=== PATIENT | female | born 1950 | race Caucasian/White ===

== ENCOUNTER 2018-05-10 13:08 | Emergency (ER) | payer OTHER ==
[~2018-05-10] VITALS: Ht 147.3 cm; Wt 66.7 kg
[~2018-05-10 13:08] MED LIST: AMARYL; AMLODIPINE BES2.5 MG PO; CARISOPRODOL350 MG PO; CEFADROXIL500 MG PO; ELA-MAX30 GM TP; FENOFIBRATE 120 MG; GABAPENTIN100 MG PO; GLIMEPIRIDE1 MG; INTESTINEX680 MG PO; JANUVIA100 MG; LASIX20 MG PO; LEVSIN/SL0.125 MG SL; METFORMIN HCL500 M1 PO; NEURONTIN600 MG; NORVASC5 MG PO; PREGABALIN 25 MG PO; PRILOSEC40 MG PO; SYNTHROID; SYNTHROID75 MCG; SYNTHROID75 MCG PO; ULTRACET PO; VISTARIL25 MG PO; VISTARIL50 MG PO; WELLBUTRIN SR150 MG PO; ZANAFLEX4 M1 PO
[2018-05-10] MEDS ORDERED: NEURONTIN600 MG PO (13:35)
== END 2018-05-10 15:15 | disposition home or self-care (01) ==
LOC: ER 13:08
DX: M62.838 Other muscle spasm (principal); M25.511 Pain in right shoulder; M94.0 Chondrocostal junction syndrome [Tietze]

== ENCOUNTER 2018-05-20 13:18 | Emergency (ER) | payer OTHER ==
[~2018-05-20] VITALS: Ht 152.4 cm; Wt 65.8 kg
[~2018-05-20 13:18] MED LIST changes: +NEURONTIN600 MG PO
[2018-05-20] MEDS ORDERED: AMBIEN10 MG (13:26)
== END 2018-05-20 17:06 | disposition home or self-care (01) ==
LOC: ER 13:18
DX: K52.9 Noninfective gastroenteritis and colitis, unspecified (principal)

== ENCOUNTER 2018-12-06 16:21 | Emergency (ER) | payer OTHER ==
[~2018-12-06] VITALS: Ht 157.5 cm; Wt 64.4 kg
[~2018-12-06 16:21] MED LIST changes: +AMBIEN10 MG
== END 2018-12-06 19:49 | disposition home or self-care (01) ==
LOC: ER 16:21
DX: K08.89 Other specified disorders of teeth and supporting structures (principal)

== ENCOUNTER → 2019-04-20 | Emergency (ER) | payer OTHER ==
[~2019-04-20] VITALS: Ht 149.9 cm; Wt 66.7 kg
== END | disposition left against medical advice (07) ==
LOC: ER 16:53
DX: M54.16 Radiculopathy, lumbar region (principal); M54.5 Low back pain

== ENCOUNTER 2019-08-18 11:03 | Emergency (ER) | payer OTHER ==
[~2019-08-18] VITALS: Ht 149.9 cm; Wt 67.1 kg
== END 2019-08-18 17:27 | disposition home or self-care (01) ==
LOC: ER 11:03
DX: K52.89 Other specified noninfective gastroenteritis and colitis (principal); R10.84 Generalized abdominal pain

== ENCOUNTER 2019-08-26 10:52 | Outpatient (CLI) | payer OTHER | END 2019-08-26 11:05 | disposition home or self-care (01) | LOC: RAD 10:52 | DX: Z12.31 Encounter for screening mammogram for malignant neoplasm of breast (principal); E04.8 Other specified nontoxic goiter; E03.8 Other specified hypothyroidism ==

== ENCOUNTER 2019-12-06 15:01 | Emergency (ER) | payer OTHER ==
[~2019-12-06] VITALS: Ht 152.4 cm; Wt 65.8 kg
[2019-12-06] MEDS ORDERED: WELLBUTRIN SR150 MG (16:00)
== END 2019-12-06 19:39 | disposition home or self-care (01) ==
LOC: ER 15:01
DX: S20.462A Insect bite (nonvenomous) of left back wall of thorax, initial encounter (principal); W57.XXXA Bitten or stung by nonvenomous insect and other nonvenomous arthropods, initial encounter; Y93.89 Activity, other specified; Y92.89 Other specified places as the place of occurrence of the external cause; Y99.8 Other external cause status

== ENCOUNTER 2019-12-28 12:49 | Outpatient (CLI) | payer OTHER ==
[~2019-12-28 12:49] MED LIST changes: +WELLBUTRIN SR150 MG
== END 2019-12-28 12:55 | disposition home or self-care (01) ==
LOC: LAB 12:49
DX: J45.998 Other asthma (principal); E11.65 Type 2 diabetes mellitus with hyperglycemia; D64.89 Other specified anemias; E11.21 Type 2 diabetes mellitus with diabetic nephropathy; A49.3 Mycoplasma infection, unspecified site; J09.X1 Influenza due to identified novel influenza A virus with pneumonia; N39.0 Urinary tract infection, site not specified

== ENCOUNTER 2021-03-15 11:37 | Emergency (ER) | payer OTHER ==
[~2021-03-15] VITALS: Ht 149.9 cm; Wt 65.8 kg
== END 2021-03-15 18:45 | disposition home or self-care (01) ==
LOC: ER 11:37
DX: R10.32 Left lower quadrant pain (principal)

== ENCOUNTER 2021-05-12 21:35 | Emergency (ER) | payer OTHER ==
[~2021-05-12] VITALS: Ht 149.9 cm; Wt 63.5 kg
[2021-05-12] MEDS ORDERED: ULTRAM50 MG (22:05)
[2021-05-12] MEDS ORDERED: BACLOFEN20 MG (22:06)
[2021-05-13] MEDS ORDERED: CARAFATE1 GM PO (02:03)
[2021-05-13] MEDS ORDERED: PROTONIX20 MG PO (02:03)
[2021-05-13] MEDS ORDERED: PEPCID AC20 MG PO (02:03)
== END 2021-05-13 02:07 | disposition home or self-care (01) ==
LOC: ER 21:35
DX: R10.13 Epigastric pain (principal); R10.11 Right upper quadrant pain

== ENCOUNTER 2021-05-23 10:26 | Emergency (ER) | payer OTHER ==
[~2021-05-23] VITALS: Ht 149.9 cm; Wt 63.5 kg
[~2021-05-23 10:26] MED LIST changes: +BACLOFEN20 MG; +CARAFATE1 GM PO; +PEPCID AC20 MG PO; +PROTONIX20 MG PO; +ULTRAM50 MG
[2021-05-23] MEDS ORDERED: NEURONTIN600 M1 PO (16:45)
[2021-05-23] MEDS ORDERED: IBU600 MG PO (16:45)
[2021-05-23] MEDS ORDERED: VALACYCLOVIR1000 MG PO (16:45)
== END 2021-05-23 16:53 | disposition home or self-care (01) ==
LOC: ER 10:26
DX: R10.12 Left upper quadrant pain (principal); R10.11 Right upper quadrant pain; B02.9 Zoster without complications

== ENCOUNTER 2022-10-22 07:43 | Emergency (ER) | payer OTHER ==
[~2022-10-22] VITALS: Ht 149.9 cm; Wt 52.2 kg
[~2022-10-22 07:43] MED LIST changes: +IBU600 MG PO; +NEURONTIN600 M1 PO; +VALACYCLOVIR1000 MG PO
== END 2022-10-22 10:22 | disposition home or self-care (01) ==
LOC: ER 07:43
DX: J02.8 Acute pharyngitis due to other specified organisms (principal); Z20.822 Contact with and (suspected) exposure to COVID-19

== ENCOUNTER → 2022-12-06 | Outpatient (CLI) | payer OTHER | END | disposition home or self-care (01) | LOC: NUCLEAR 07:00 | PROVIDERS: ATTEND Internal Medicine Cardiovascular Disease | DX: I25.119 Atherosclerotic heart disease of native coronary artery with unspecified angina pectoris (principal) | CPT/HCPCS: 78452; 93017; A9500 ==

== ENCOUNTER 2023-01-04 14:24 | Emergency (ER) | payer OTHER ==
[~2023-01-04] VITALS: Ht 149.9 cm; Wt 51.3 kg
== END 2023-01-04 20:04 | disposition home or self-care (01) ==
LOC: ER 14:24
DX: K29.00 Acute gastritis without bleeding (principal); I10 Essential (primary) hypertension; K76.1 Chronic passive congestion of liver; E11.9 Type 2 diabetes mellitus without complications; Z79.84 Long term (current) use of oral hypoglycemic drugs; K21.9 Gastro-esophageal reflux disease without esophagitis; N39.0 Urinary tract infection, site not specified

== ENCOUNTER 2023-01-10 07:00 | Outpatient (CLI) | payer OTHER | END 2023-01-14 15:36 | disposition home or self-care (01) | LOC: TOM 07:00 | PROVIDERS: ATTEND Specialist | DX: K57.92 Diverticulitis of intestine, part unspecified, without perforation or abscess without bleeding (principal); N23 Unspecified renal colic ==

== ENCOUNTER 2023-04-27 13:26 | Emergency (ER) | payer OTHER ==
[~2023-04-27] VITALS: Ht 147.3 cm; Wt 49.9 kg
[2023-04-27] MEDS ORDERED: DOLOGESIC 500-1 EACH PO (17:12)
[2023-04-27] MEDS ORDERED: FLONASE ALLERG9.9 ML NASAL (17:12)
[2023-04-27] MEDS ORDERED: ZITHROMAX500 MG PO (17:29)
== END 2023-04-27 17:40 | disposition home or self-care (01) ==
LOC: ER 13:26
DX: U07.1 COVID-19 (principal)

== ENCOUNTER 2023-11-10 16:33 | Emergency (ER) | payer OTHER ==
[~2023-11-10] VITALS: Ht 149.9 cm; Wt 49.9 kg
[~2023-11-10 16:33] MED LIST changes: +DOLOGESIC 500-1 EACH PO; +FLONASE ALLERG9.9 ML NASAL; +ZITHROMAX500 MG PO
[2023-11-10] MEDS ORDERED: CLEOCIN HCL300 MG PO (18:50)
== END 2023-11-10 19:16 | disposition home or self-care (01) ==
LOC: ER 16:33
DX: S61.022A Laceration with foreign body of left thumb without damage to nail, initial encounter (principal); W45.8XXA Other foreign body or object entering through skin, initial encounter; Y93.89 Activity, other specified; Y92.89 Other specified places as the place of occurrence of the external cause; Z91.011 Allergy to milk products; J45.909 Unspecified asthma, uncomplicated; E11.9 Type 2 diabetes mellitus without complications; Z79.84 Long term (current) use of oral hypoglycemic drugs; I10 Essential (primary) hypertension; E03.9 Hypothyroidism, unspecified

== ENCOUNTER 2024-08-12 13:41 | Emergency (ER) | payer OTHER ==
[~2024-08-12] VITALS: Ht 149.9 cm; Wt 54.4 kg
[~2024-08-12 13:41] MED LIST changes: +CLEOCIN HCL300 MG PO; +LEVOTHYROXINE50 MCG PO
[2024-08-12] MEDS ORDERED: KETOROLAC TROMET5 M1 OP (14:06)
[2024-08-12] MEDS ORDERED: PREDNISOLO15 MG/5 M1 PO (14:06)
[2024-08-12 14:08] VITALS: BP 151/80; O2SAT 98
[2024-08-12 16:36] LABS: HEMATOCRIT 39.4 % (36.0-45.00); HEMOGLOBIN 13.9 g/dL (12.0-15.00); MEAN CELL VOLUME 89.7 fL (80.00-100.00); MEAN CORPUSCULAR HEMOGLOBIN 31.6 pg (27.00-32.0); MEAN CORPUSCULAR HGB CONC 35.2 g/dl (32.0-36.0); RED BLOOD COUNT 4.39 M/uL (4.00-6.00); RED CELL DISTRIBUTION WIDTH 13.4 % (11.5-14.5)
[2024-08-12 16:54] LABS: PLATELET COUNT 120 K/uL (150-450)
== END 2024-08-12 19:17 | disposition home or self-care (01) ==
LOC: ER 13:42
DX: A90 Dengue fever [classical dengue] (principal)

== ENCOUNTER 2024-09-13 11:01 | Emergency (ER) | payer OTHER ==
[~2024-09-13] VITALS: Ht 149.9 cm; Wt 57.6 kg
[~2024-09-13 11:01] MED LIST changes: +KETOROLAC TROMET5 M1 OP; +PREDNISOLO15 MG/5 M1 PO
[2024-09-13] MEDS ORDERED: KETOROLAC TROMETHAMINE 30 MG VIAL IM STA (12:57)
[2024-09-13] MEDS ORDERED: ORPHENADRINE CITRATE 30 MG/ML AMPUL IM STA (12:58)
== END 2024-09-13 14:43 | disposition home or self-care (01) ==
LOC: ER 11:03
DX: M54.50 Low back pain, unspecified (principal); W07.XXXA Fall from chair, initial encounter; Y93.89 Activity, other specified; Y92.018 Other place in single-family (private) house as the place of occurrence of the external cause; Z91.011 Allergy to milk products; M62.830 Muscle spasm of back
CPT/HCPCS: 72100; 73502; 96372; 99283; J1885; J2360

== ENCOUNTER 2024-12-06 19:06 | Emergency (ER) | payer OTHER ==
[~2024-12-06] VITALS: Ht 154.9 cm; Wt 63.5 kg
[2024-12-06] MEDS ORDERED: TETRACAINE HCL 20 DR/ML DROPS OP STA (22:09)
[2024-12-06] MEDS ORDERED: GENTAMICIN SULFATE 0.15 MG/DR DROPS 5ML OP STA (22:19)
[2024-12-06] MEDS ORDERED: GENTAMICIN SULFATE 0.15 MG/DR DROPS 5ML OP ONE (22:22)
== END 2024-12-06 22:27 | disposition home or self-care (01) ==
LOC: ER 19:08
DX: S05.31XA Ocular laceration without prolapse or loss of intraocular tissue, right eye, initial encounter (principal); X58.XXXA Exposure to other specified factors, initial encounter; Y93.89 Activity, other specified; Y92.89 Other specified places as the place of occurrence of the external cause; Y99.9 Unspecified external cause status; Z91.011 Allergy to milk products

== ENCOUNTER 2025-01-10 11:59 | Emergency (ER) | payer OTHER ==
[~2025-01-10] VITALS: Ht 149.9 cm; Wt 54.4 kg
[2025-01-10] MEDS ORDERED: GABAPENTIN600 MG PO (12:36)
[2025-01-10] MEDS ORDERED: FAMOTIDINE20 MG PO (12:36)
[2025-01-10] MEDS ORDERED: PANTOPRAZOLE SO40 MG PO (12:36)
[2025-01-10] MEDS ORDERED: BUPROPION HCL150 M1 PO (12:36)
[2025-01-10] MEDS ORDERED: LEVOTHYROXINE75 MCG PO (12:36)
[2025-01-10] MEDS ORDERED: LEVALBUTEROL HCL 0.63 MG/3 ML SOLUTION IH SCH (13:00)
[2025-01-10] MEDS ORDERED: METHYLPREDNISOLONE SOD SUCC 125 MG VIAL IV ONE (13:00)
[2025-01-10] MEDS ORDERED: METHYLPREDNISOLONE SOD SUCC 125 MG VIAL ONE (13:17)
[2025-01-10 13:38] LABS: HEMATOCRIT 40.5 % (36.0-45.00); HEMOGLOBIN 13.9 g/dL (12.0-15.00); MEAN CELL VOLUME 90.9 fL (80.00-100.00); MEAN CORPUSCULAR HEMOGLOBIN 31.1 pg (27.00-32.0); MEAN CORPUSCULAR HGB CONC 34.2 g/dl (32.0-36.0); PLATELET COUNT 160 K/uL (150-450); RED BLOOD COUNT 4.45 M/uL (4.00-6.00); RED CELL DISTRIBUTION WIDTH 13.3 % (11.5-14.5)
[2025-01-10] MEDS ORDERED: LEVALBUTEROL HCL 0.63 MG/3 ML SOLUTION IH ONE (15:51)
[2025-01-10 15:58] LABS: ABG PH 7.518 (7.35-7.45); ABG PO2 173.7 mmHg (80-100); ABG pCO2 28.6 mmHg (35-45); BASE EXCESS 1.1 mmol/l; BICARBONATE 22.7 mmol/l (23-25); SaO2 99.7 %; Tco2 23.6 mmol/l
[2025-01-10 16:24] LABS: allen test SATISFACTORY; o2 32 %; puncture site RADIAL RIGHT
[2025-01-10] MEDS ORDERED: XOPENEX CO1.25 MG/0. IH (17:09)
[2025-01-10] MEDS ORDERED: MONODOX100 MG PO (17:09)
[2025-01-10] MEDS ORDERED: TUSNEL LIQUID178 ML PO (17:09)
[2025-01-10] MEDS ORDERED: MEDROLPACK PO (17:09)
== END 2025-01-10 17:51 | disposition home or self-care (01) ==
LOC: ER 12:02
PROVIDERS: Emergency Medicine
DX: J45.909 Unspecified asthma, uncomplicated (principal); Z20.822 Contact with and (suspected) exposure to COVID-19; I10 Essential (primary) hypertension; E03.8 Other specified hypothyroidism; Z91.011 Allergy to milk products

== ENCOUNTER 2025-06-15 13:42 | Emergency (ER) | payer OTHER ==
[~2025-06-15] VITALS: Ht 149.9 cm; Wt 59.0 kg
[~2025-06-15 13:42] MED LIST changes: +BUPROPION HCL150 M1 PO; +FAMOTIDINE20 MG PO; +GABAPENTIN600 MG PO; +LEVOTHYROXINE75 MCG PO; +MEDROLPACK PO; +MONODOX100 MG PO; +PANTOPRAZOLE SO40 MG PO; +TUSNEL LIQUID178 ML PO; +XOPENEX CO1.25 MG/0. IH
[2025-06-15] MEDS ORDERED: FAMOTIDINE/PF 20 MG in 0.9 % SODIUM CHLORIDE 8 ML IV PUSH STA (16:19)
[2025-06-15] MEDS ORDERED: ONDANSETRON HCL 2 MG/ML VIAL IV ONE (16:30)
[2025-06-15] MEDS ORDERED: DIPHENOXYLATE HCL/ATROPINE 1 UDTAB TABLET PO ONE (16:30)
[2025-06-15] MEDS ORDERED: PIPERACILLIN/TAZOBACTAM SODIUM 3.375 GM VIAL IV ONE (16:30)
[2025-06-15] MEDS ORDERED: 0.9 % SODIUM CHLORIDE 1,000 ML IV SCH (16:30)
[2025-06-15 16:56] LABS: BASO % 0.2 % (0.1-1.2); EOS # 0.16 (0.04-0.54); EOS % 2.7 % (0.7-7.0); LYMPH # 1.34 (1.18-3.74); LYMPH % 22.6 % (19.3-53.1); MEAN PLATELET VOLUME 10.20 fl (9.4-12.4); MONO # 0.51 (0.24-0.82); MONO % 8.6 % (4.7-12.5); NEUT # 3.89 (1.56-6.13); NEUT % 65.7 % (34.0-71.1); RED CELL DISTRIBUTION WIDTH 12.4 % (11.6-14.4)
[2025-06-15] MEDS ORDERED: MORPHINE SULFATE 4 MG/ML VIAL IV ONE (17:15)
[2025-06-15 17:25] LABS: ALT/SGPT 27.0 U/L (12-78); AST/SGOT 28.0 U/L (15-37); BILIRUBIN TOTAL 0.67 mg/dL (0.3-1.2); BILIRUBIN,CONJUGATED 0.2 mg/dL (0.0-0.2); BUN CREA RATIO 8.0 (7.0-25.0); CREATININE SERUM 0.62 mg/dL (0.55-1.02); GFR 94.62; GLOBULINA 3.7 G/DL (2.4-3.5); GLUCOSE FASTING 88.0 mg/dL (65-100); OSMOLALITY SERUM 284.0 MOSM/KG (275-295)
[2025-06-15] MEDS ORDERED: METHYLPREDNISOLONE SOD SUCC 125 MG VIAL IV ONE (18:15)
[2025-06-15] MEDS ORDERED: LEVSIN/SL0.125 MG SL (19:39)
== END 2025-06-15 20:28 | disposition home or self-care (01) ==
LOC: ER 13:42
PROVIDERS: General Practice
DX: K52.9 Noninfective gastroenteritis and colitis, unspecified (principal); K57.90 Diverticulosis of intestine, part unspecified, without perforation or abscess without bleeding; K74.60 Unspecified cirrhosis of liver; D73.4 Cyst of spleen; I86.8 Varicose veins of other specified sites; E11.9 Type 2 diabetes mellitus without complications; Z79.84 Long term (current) use of oral hypoglycemic drugs; I10 Essential (primary) hypertension; Z91.011 Allergy to milk products
CPT/HCPCS: 36415; 74176; 96365; 96366; 99284; J2270; J2405; J2543; J3490

== ENCOUNTER 2025-07-07 17:31 | Emergency (ER) | payer OTHER ==
[~2025-07-07] VITALS: Ht 149.9 cm; Wt 58.1 kg
[2025-07-07 17:52] VITALS: BP 150/85; O2SAT 99
[2025-07-07] MEDS ORDERED: SYNTHROID50 MCG PO (17:56)
[2025-07-07] MEDS ORDERED: AMBIEN5 MG PO (17:56)
[2025-07-07] MEDS ORDERED: DIPHENOXYLATE HCL/ATROPINE 1 UDTAB TABLET PO ONE (18:30)
[2025-07-07] MEDS ORDERED: KETOROLAC TROMETHAMINE 15 MG VIAL IV ONE (18:30)
[2025-07-07] MEDS ORDERED: 0.9 % SODIUM CHLORIDE 1,000 ML IV SCH (18:30)
[2025-07-07] MEDS ORDERED: FAMOTIDINE/PF 20 MG/2 ML VIAL IV PUSH ONE (18:30)
[2025-07-07 19:03] LABS: BASO % 0.5 % (0.1-1.2); EOS # 0.25 (0.04-0.54); EOS % 4.2 % (0.7-7.0); LYMPH # 1.41 (1.18-3.74); LYMPH % 23.7 % (19.3-53.1); MEAN PLATELET VOLUME 10.50 fl (9.4-12.4); MONO # 0.56 (0.24-0.82); MONO % 9.4 % (4.7-12.5); NEUT # 3.68 (1.56-6.13); NEUT % 62.0 % (34.0-71.1); RED CELL DISTRIBUTION WIDTH 12.1 % (11.6-14.4)
[2025-07-07 19:32] LABS: ALT/SGPT 25.0 U/L (12-78); AST/SGOT 36.0 U/L (15-37); BILIRUBIN TOTAL 1.09 mg/dL (0.3-1.2); BUN CREA RATIO 10.0 (7.0-25.0); CREATININE SERUM 0.58 mg/dL (0.55-1.02); GFR 101.9; GLOBULINA 4.0 G/DL (2.4-3.5); GLUCOSE FASTING 88.0 mg/dL (65-100); OSMOLALITY SERUM 284.0 MOSM/KG (275-295)
[2025-07-07] MEDS ORDERED: INTESTINEX680 M1 PO (20:56)
== END 2025-07-07 21:46 | disposition home or self-care (01) ==
LOC: ER 17:36
PROVIDERS: General Practice
DX: R19.7 Diarrhea, unspecified (principal); Z91.011 Allergy to milk products; E03.8 Other specified hypothyroidism

== ENCOUNTER 2025-10-18 10:16 | Emergency (ER) | payer OTHER ==
[~2025-10-18] VITALS: Ht 149.9 cm; Wt 59.0 kg
[~2025-10-18 10:16] MED LIST changes: +AMBIEN5 MG PO; +INTESTINEX680 M1 PO; +SYNTHROID50 MCG PO
[2025-10-18] MEDS ORDERED: GLIMEPIRIDE2 MG (11:00)
[2025-10-18 11:01] VITALS: BP 145/79; O2SAT 98
[2025-10-18] MEDS ORDERED: UCERIS9 MG (11:01)
[2025-10-18] MEDS ORDERED: DEXAMETHASONE SODIUM PHOSPHATE 4 MG/ML VIAL IM STA (11:47)
[2025-10-18] MEDS ORDERED: ACETAMINOPHEN 500 MG GEL..CAP PO ONE ×2 (12:00→12:48)
[2025-10-18] MEDS ORDERED: GUAIFENESIN 200 MG/10 ML BLIST.PACK PO ONE ×2 (12:00→12:49)
[2025-10-18] MEDS ORDERED: LORATADINE 10 MG TABLET PO ONE (12:00)
[2025-10-18] MEDS ORDERED: DEXAMETHASONE SODIUM PHOSPHATE 4 MG/ML VIAL ONE (12:49)
[2025-10-18 13:06] LABS: BASO % 0.6 % (0.1-1.2); EOS # 0.54 (0.04-0.54); EOS % 7.7 % (0.7-7.0); LYMPH # 1.65 (1.18-3.74); LYMPH % 23.6 % (19.3-53.1); MEAN PLATELET VOLUME 9.90 fl (9.4-12.4); MONO # 0.67 (0.24-0.82); MONO % 9.6 % (4.7-12.5); NEUT # 4.05 (1.56-6.13); NEUT % 58.1 % (34.0-71.1); RED CELL DISTRIBUTION WIDTH 12.4 % (11.6-14.4)
[2025-10-18] MEDS ORDERED: AZITHROMYCIN250 MG PO (14:30)
[2025-10-18] MEDS ORDERED: CLARITIN10 M1 PO (14:30)
== END 2025-10-18 14:49 | disposition home or self-care (01) ==
LOC: ER 10:17
PROVIDERS: General Practice
DX: J06.9 Acute upper respiratory infection, unspecified (principal); R05.8 Other specified cough; R51.9 Headache, unspecified; E11.9 Type 2 diabetes mellitus without complications; I10 Essential (primary) hypertension; Z91.011 Allergy to milk products
CPT/HCPCS: 36415; 70210; 71046; 96372; 99283; J1100